=== PATIENT | female | born 2000 | race Caucasian/White ===

== ENCOUNTER 2024-10-12 23:34 | Emergency (ER) | payer SELFPAY ==
[~2024-10-12] VITALS: Ht 157.5 cm; Wt 66.0 kg
[2024-10-12 23:55] VITALS: O2SAT 100
[2024-10-13] MEDS ORDERED: AMOX-494 MT (00:19)
[2024-10-13] MEDS ORDERED: ACET-2708 MT (00:19)
[2024-10-13 00:35] LABS: BASOPHILS % 0.5 % (0.0-2.0); EOSINOPHILS % 0.1 % (0.0-5.0); HEMATOCRIT. 37.1 % (36.0-48.0); HEMOGLOBIN. 12.7 g/dL (12.0-16.0); LYMPHOCYTES % 13.2 % (20.0-50.0); MEAN CORPUSCULAR HEMOGLOBIN 30.1 pg (28.0-32.0); MEAN CORPUSCULAR HGB CONC 34.2 g/dL (31.0-37.0); MEAN CORPUSCULAR VOLUME 87.9 fL (81.0-99.0); MEAN PLATELET VOLUME 10.1 fl (7.4-10.4); MONOCYTES % 10.7 % (2.0-8.0); NEUTROPHILS % 75.5 % (40.0-76.0); PLATELET 208 x1000/uL (130-400); RED BLOOD CELL COUNT 4.22 mill/uL (4.2-5.4); RED CELL DISTRIBUTION WIDTH 13.6 % (11.6-14.6); WHITE BLOOD COUNT 8.6 x1000/uL (4.5-11.0)
[2024-10-13 00:44] LABS: CHLORIDE 105 mEq/L (98-107); POTASSIUM 3.9 mEq/L (3.5-5.1); SODIUM 136 mEq/L (136-145)
[2024-10-13 00:45] LABS: CARBON DIOXIDE 25 mEq/L (21-32)
[2024-10-13 00:46] LABS: CALCIUM 8.9 mg/dL (8.7-10.4)
[2024-10-13 00:50] LABS: CREATININE 0.8 mg/dL (0.6-1.0); GLUCOSE 99 mg/dL (70-105); UREA NITROGEN BLOOD 11 mg/dL (9-23)
[2024-10-13 01:16] LABS: B-HCG QUANTITATIVE 1090 mIU/mL (<6)
[2024-10-13 01:44] LABS: CLARITY URINE CLEAR (CLEAR); COLOR URINE YELLOW (YELLOW); GLUCOSE URINE NEGATIVE (NEGATIVE); KETONES URINE TRACE (NEGATIVE); LEUKOCYTE ESTERASE URINE NEGATIVE (NEGATIVE); NITRITE URINE NEGATIVE (NEGATIVE); OCCULT BLOOD URINE NEGATIVE (NEGATIVE); PH URINE 8.5 (4.5-8.0); PROTEIN URINE NEGATIVE (NEGATIVE)
[2024-10-13] MEDS: DEXAMETHASONE 10 MG/ML VIAL PO ONE (02:24)
[2024-10-13] MEDS: ACETAMINOPHEN 325MG TABLET PO ONE (02:24)
[2024-10-13] MEDS: PENICILLIN G BENZATHINE 1,200,000 UNITS/2ML SYR IM ONE (02:33)
[2024-10-13] MEDS: ACETAMINOPHEN 325MG TABLET PO NR (02:34)
[2024-10-13] MEDS: DEXAMETHASONE 10 MG/ML VIAL PO NR (02:35)
[2024-10-13 02:37] VITALS: BP 106/57; PULSE 91; RESP 20; TEMP 38.5; O2SAT 100
== END 2024-10-13 02:46 | disposition home or self-care (01) ==
LOC: ER 10-13
DX: O99.511 Diseases of the respiratory system complicating pregnancy, first trimester (principal); J03.90 Acute tonsillitis, unspecified; Z3A.01 Less than 8 weeks gestation of pregnancy
CPT/HCPCS: 99285; 76801; 80048; 81003; 84702; 87430; 85025; 86850; 86900; 86901; 87070; 36415; 76817; 96372; J0561; J1100